=== PATIENT | male | born 2000 | race Caucasian/White ===

== ENCOUNTER 2023-09-29 21:10 | Emergency (ER) | payer MEDICAID ==
[~2023-09-29] VITALS: Ht 172.7 cm; Wt 99.8 kg
[2023-09-29] MEDS ORDERED: IBUP-1955 PO (23:28)
[2023-09-29] MEDS ORDERED: ACET-2605 PO (23:28)
[2023-09-29] MEDS ORDERED: CYCL5TAB PO (23:28)
[2023-09-29 23:38] VITALS: BP 132/84; TEMP 98.5; O2SAT 98
== END 2023-09-29 23:39 | disposition home or self-care (01) ==
LOC: ER 21:14
DX: Z04.1 Encounter for examination and observation following transport accident (principal); V89.2XXA Person injured in unspecified motor-vehicle accident, traffic, initial encounter; Y93.89 Activity, other specified; Y92.89 Other specified places as the place of occurrence of the external cause; Y99.8 Other external cause status